=== PATIENT | male | born 1950 | race Caucasian/White ===

== ENCOUNTER → 2021-10-13 | Outpatient (CLI) | payer MEDICARE, MEDICAID ==
[~2021-10-13] VITALS: Ht 172.7 cm; Wt 82.3 kg
[~2021-10-13] MED LIST: ASPIRIN 81M81 MG/TA2 PO; FLONASE NASAL S16 GM NS; FLONASEALLERGY NS; LIPITOR20 MG PO; MOBIC 7.5MG7.5 MG PO; PRIL40 PO; PRINZIDE 25 MG-1 TAB PO; PROTONIX 40MG T40 MG PO
[2021-10-13 12:26] VITALS: BP 155/79; PULSE 88; TEMP 97.8
[2021-10-13 13:50] VITALS: BP 137/81; PULSE 92
== END ==
LOC: COL.RAD 12:04
DX: M51.36 Other intervertebral disc degeneration, lumbar region (principal)
CPT/HCPCS: J3301

== ENCOUNTER → 2021-12-28 | Outpatient (CLI) | payer MEDICARE, MEDICAID | LOC: COL.RAD 09:08 | DX: M47.816 Spondylosis without myelopathy or radiculopathy, lumbar region (principal); M48.061 Spinal stenosis, lumbar region without neurogenic claudication; M47.897 Other spondylosis, lumbosacral region; M40.46 Postural lordosis, lumbar region | CPT/HCPCS: A9575 ==